=== PATIENT | female | born 1985 | race Caucasian/White ===

== ENCOUNTER 2017-06-25 07:35 | Emergency (ER) | payer SELFPAY ==
[~2017-06-25] VITALS: Ht 160 cm; Wt 81.0 kg
[~2017-06-25 07:35] MED LIST: LORTAB 1010 MG PO; NO HOME MEDS; PENICILLN VK500 M1 PO
[2017-06-25] MEDS ORDERED: AUGMENTIN875TAB PO (07:59)
[2017-06-25 08:50] VITALS: BP 132/68
== END 2017-06-25 09:02 | disposition home or self-care (01) | DRG 605 ==
LOC: ED 07:35
DX: S71.152A Open bite, left thigh, initial encounter (principal); W54.0XXA Bitten by dog, initial encounter; Y92.009 Unspecified place in unspecified non-institutional (private) residence as the place of occurrence of the external cause

== ENCOUNTER 2022-06-16 18:48 | Emergency (ER) | payer SELFPAY ==
[~2022-06-16] VITALS: Ht 160 cm; Wt 73.6 kg
[2022-06-16] VITALS (7 sets, daily range): BP systolic 102–120; BP diastolic 67–81
[~2022-06-16 18:48] MED LIST changes: +AUGMENTIN875TAB PO
[2022-06-16 20:45] LABS: URINE BILIRUBIN - DIPSTICK NEGATIVE (NEGATIVE); URINE BLOOD DIPSTICK NEGATIVE (NEGATIVE); URINE COLOR YELLOW; URINE GLUCOSE - DIPSTICK NEGATIVE (NEGATIVE); URINE KETONE NEGATIVE (NEGATIVE); URINE LEUK ESTERASE NEGATIVE (NEGATIVE); URINE PH 5.5 (4.5-8.0); URINE PROTEIN - DIPSTICK NEGATIVE (NEG-TRACE); URINE SPECIFIC GRAVITY >=1.030; URINE UROBILINOGEN - DIPSTICK 0.2 E.U./dL (0.2)
[2022-06-16 20:48] LABS: URINE NITRITE - DIPSTICK NEGATIVE (Negative)
[2022-06-16 21:25] LABS: HEMATOCRIT 35.9 % (37.0-47.0); HEMOGLOBIN 11.4 g/dl (12.0-16.0); IMMATURE GRANULOCYTES 0.3 % (0.0-5.0); MEAN CORPUSCULAR HGB 29.4 pG CALC (26.0-32.0); MEAN CORPUSCULAR HGB CONC 31.8 g/dL CAL (32.0-36.0); NEUT# 6.17 thou/uL (2.00-7.15); RED BLOOD COUNT 3.88 mill/uL (4.20-5.60); RED CELL DISTRI WIDTH 13.5 % (11.5-15.5)
[2022-06-16 21:29] LABS: MEAN CELL VOLUME 92.5 fL CALC (80.0-100.0)
[2022-06-16 21:38] LABS: ALBUMIN 4.1 g/dL (3.2-5.0); ALKALINE PHOSPHATASE 61 u/l (38-126); BILIRUBIN, TOTAL 0.2 mg/dL (0.0-1.4); BUN 11 mg/dL (7-17); BUN/CREATININE RATIO 12 (12-20 (CALC)); CARBON DIOXIDE 28 mmol/l (22-30); CHLORIDE 106 mmol/l (95-108); CREATININE 0.9 mg/dL (0.5-1.0); GFR FOR AFR.AMER. > 60 ML/MIN (>=60 (CALC)); GFR OTHER RACES > 60 ML/MIN (>=60 (CALC)); POTASSIUM 3.6 mmol/l (3.5-5.1); SGOT/AST 30 u/l (14-36)
[2022-06-16 22:15] LABS: ANION GAP 13 (6-22 (CALC)); SODIUM 143 mmol/l (137-146)
[2022-06-16] MEDS ORDERED: NAPROXEN500 MG PO (22:25)
== END 2022-06-16 22:35 | disposition home or self-care (01) | DRG 392 ==
LOC: ED 18:48
PROVIDERS: Emergency Medicine
DX: R10.11 Right upper quadrant pain (principal); F17.210 Nicotine dependence, cigarettes, uncomplicated
CPT/HCPCS: Q9967